=== PATIENT | female | born 1935 ===

== ENCOUNTER 2023-09-06 00:06 | Outpatient (CLI) | payer OTHER, SELFPAY ==
--- NOTE | ~2023-09-06 | CT_ITS ---
EXAMINATION: CT pelvis wo con DATE: 09/06/2023 00:50 INDICATION: Left hip pain. Fall. TECHNIQUE: Computed tomography (CT) of the pelvis was performed without intravenous contrast. Automat ed exposure control and iterative reconstruction technique were employed. The dose-length product was 185.61 mGy-cm. COMPARISON: None FINDINGS: There is a 4.3 cm cyst in left kidney. The bladder is distended. 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 There is a subcapital fracture of left femoral neck with internal fixation. There a re insufficiency fractures of the bilateral sacral ala and S3 segment. There is severe lumbar spondyl osis. There is moderate osteoarthritis of the hips. IMPRESSION: 1. Insufficiency fractures of the sacrum. Reviewed, dictated and finalized at location A.
--- NOTE | 2023-09-06 06:39 | PC.NURSE ---
Gabriel Radiologist called with over-read on this patient. Results were called to [facility] ER charge nurse. [facility] at [phone].
== END 2023-09-06 00:07 | disposition home or self-care (01) ==
DX: S32.19XA Other fracture of sacrum, initial encounter for closed fracture (principal)
CPT/HCPCS: 72192